=== PATIENT | male | born 1990 | race American Indian/Alaskan Native ===

== ENCOUNTER 2017-03-24 09:59 | Emergency (ER) | payer SELFPAY ==
[2017-03-24] MEDS ORDERED: DUONEB *Not for PRN Use IH ONE (11:50)
[2017-03-24] MEDS ORDERED: DELTASONE PO ONE (11:50)
--- NOTE | 2017-03-24 12:11 | XRay Report ---
CHEST 2 VIEWS INDICATION: Productive cough, bronchitis. COMPARISON: None similar at this institution. FINDINGS: PA and lateral chest radiographs demonstrate normal cardiomediastinal silhouette. Clear lungs. Intact bones. CONCLUSION: No acute disease in the chest. Thank you for the opportunity to participate in this patient's care.
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
[2017-03-24 12:52] VITALS: BP 148/93
== END 2017-03-24 12:51 | disposition home or self-care (01) ==
LOC: ED 09:59
DX: J40 Bronchitis, not specified as acute or chronic (principal); F17.200 Nicotine dependence, unspecified, uncomplicated
CPT/HCPCS: 71020; 99283; J7512